=== PATIENT | female | born 1995 | race Hispanic/Latino ===

== ENCOUNTER 2016-11-17 01:07 | Inpatient (IN) | payer OTHER ==
[~2016-11-17] VITALS: Ht 152.4 cm; Wt 107.5 kg
[~2016-11-17 01:07] MED LIST: PREN1TAB47 PO
--- NOTE | 2016-11-17 08:51 | HP ---
[address] [address] HISTORY AND PHYSICAL PATIENT: ANGIE BLACKWOOD : 1995 MR#: [id number] ADMIT: 11/17/2016 JOB ID: [id number] CHIEF COMPLAINT: Induction. HISTORY OF PRESENT ILLNESS: This is a 21-year-old obstetrical patient of mine who is a 3, para 2, at 41 and 0 weeks estimated gestational age today who presents for elective induction for being post dates. Her EDC is November 10, 2016 and her last menstrual period was February 04, 2016. She has no acute complaints at all. She has been having some mild contractions for a number of days and has demonstrated some minimal cervical change, but is not doing much. heart tracing was reassuring this morning. The cervical exam is 2 cm, 70% effaced, -3 and vertex position and cervix is soft. The patient will be admitted for elective induction. COURSE: course was entirely unremarkable. LABORATORY: Her initial laboratory tests are fairly unremarkable. Her blood type is A-positive. She is rubella nonimmune. Serology was nonreactive. She has negative hepatitis B, hep C, HIV and antibody screen. Hematocrit was 43 at seven weeks and 42.3, at 27 weeks. Herpes test for type 1 was positive, but type 2 is negative. Initial Pap smear was unremarkable. Chlamydia and gonorrhea tests were negative. Urine was mixed. MSAFP test was declined. The 28 weeks labs showed a diabetic screen that was negative with 1 hour Glucola of 86 and antibody screen was again negative and hematocrit was stable at 42.3. GBS test was performed at 36 weeks and was negative. PAST OBSTETRICAL HISTORY: Patient has had two spontaneous vaginal deliveries, one in 2010 and one in January 2014, both unremarkable at term. The 1st was GBS positive; although, the baby was fine and had no subsequent problems. PAST GYNECOLOGICAL HISTORY: Entirely unremarkable. PAST MEDICAL HISTORY: Also entirely unremarkable. SURGICAL HISTORY: Negative with no prior operations. ALLERGIES: She has no known drug allergies. MEDICATIONS: Current medications are vitamins. FAMILY HISTORY: Significant for diabetes in her maternal grandmother and twins of maternal uncles. There is no hypertension or congenital defects in her family history. SOCIAL HISTORY: The patient lives in [place] with her significant other and their two children. Patient is a full-time mom who is currently unemployed and she is a nonsmoker. Denies ever smoking and also denies alcohol or drug use. REVIEW OF SYSTEMS: See HPI above. The patient denies any chest pain, palpitations, shortness of breath. No unusual abdominal pain. No headaches. No blurry vision. She had a little bit of swelling in her feet lately and she did have both flu shot and tetanus shot in May of this year. OBJECTIVE: Well-developed, well-nourished woman in no apparent distress. Her vital signs are normal with a blood pressure of 117/74, and pulse of 86, respirations normal. Lungs are clear to auscultation bilaterally. Good air movement. Heart is regular rate and rhythm. No significant murmurs heard. Abdomen is gravid, otherwise benign. Extremities show no significant edema. She is a little puffy, but no pitting edema is noted. Her deep tendon reflexes are normal. Cervical exam is as mentioned above at 2 cm with 70% effacement, soft and the baby is at -3 station and in vertex position. heart tracing is reactive. ASSESSMENT/PLAN: Intrauterine at 41 and 0/7th weeks estimated gestational age who is now postdates by one week is here for elective induction. We will go ahead and admit her and plan on using Cytotec since her Del Cid score is less than eight for cervical ripening. I discussed this case with Dr. Martino this morning who concurs with the plan of care. I discussed routine expectant management issues and procedures. I also discussed the potential complications in the usual obstetrical procedures to address them, but also the possible need for surgical care if a becomes needed. I also discussed the possible need for assistance with vacuum extraction and the associated potential complications. All of her questions were answered and she expressed understanding of these issues and is willing to proceed.
[2016-11-17 10:34] LABS: Mean Corpuscular Hemoglobin 27.4 pg (27.0-35.0); Mean Corpuscular Volume 84.9 fL (81-100)
[2016-11-17] MEDS ORDERED: Lactated Ringer's 1,000 ML IV SCH ×2 (11:19→12:31)
[2016-11-17] MEDS ORDERED: diphenhydrAMINE 50 mg Capsule PO PRN (11:20)
[2016-11-17] MEDS ORDERED: Misoprostol 25 mCg/0.25 Tablet VAGINAL SCH (11:20)
[2016-11-17] MEDS ORDERED: Oxytocin 30 Units/500 mL LR 30 UNITS in IV Premix 1 EACH IV PRN ×2 (11:20→11:55)
[2016-11-17] MEDS ORDERED: Lactated Ringer's 1,000 ML IV PRN (11:54)
[2016-11-17] MEDS ORDERED: Methylergonovine 0.2 mg/mL Inj IM PRN (11:55)
[2016-11-17] MEDS ORDERED: Carboprost 250 mCg/mL Inj IM PRN (11:55)
[2016-11-17] MEDS ORDERED: Hemorrhage Kit, Post Partum XX ONE (11:55)
[2016-11-17] MEDS ORDERED: Oxytocin 10 Unit/mL Inj IM PRN (11:55)
[2016-11-17] MEDS ORDERED: Lactated Ringer's 500 ML IV ONE (12:31)
[2016-11-17] MEDS ORDERED: fentaNYL 2 mCg/mL-Bupiv 0.125% 100 ML EPIDURAL SCH (12:35)
[2016-11-17] MEDS ORDERED: EPHEDrine Sulfate 50 mg/mL Inj IVPUSH PRN (12:35)
[2016-11-17] MEDS ORDERED: Ondansetron 2 mg/mL 2 mL Inj IVPUSH PRN (12:35)
[2016-11-17] MEDS ORDERED: Atropine 1 mg/10 mL (Code) Syringe IVPUSH PRN (12:35)
[2016-11-17] MEDS ORDERED: Sodium Chloride LOK Flush 10 mL Syringe IVFLUSH SCH (16:30)
--- NOTE | 2016-11-17 22:59 | PCM.HPANE ---
Patient Data Surgeon Admitting Provider:Ramy Lam MD Attending Provider:Ramy Lam MD Primary Care Physician:Ramy Lam MD Other Provider:Kitty Mcneilingham Anesthesia Reason for Visit Induction INDUCTION Ht/WT & BMI Body Mass Index Allergies Coded Allergies: No Known Allergies (Unverified Allergy, Unknown, 02/19/14) Past Anesthesia History Anesthesia History: Denies:: Abnormal Airway, Anesthesia Reactions, Difficult Intubation, Fam Anesthesia Reaction, Fam Malignant Hypertherm, Malignant Hyperthermia Diabetes History Hx Diabetes?: No Medications Hypertension Medication: No Home Meds Incl Beta Demetra: No Reported Medications Vit/Fe Fumarate/Fa-Expunged Drug, Do (-Expunged Drug, Do Not Renew!)1 Tab Tablet1 Po Daily 12/28/10 History History of ENT Problems?: No HEENT History: Denies:: Abnormal Airway Cataracts Difficult Intubation Dysphagia Glaucoma Hearing Problem Sinus Problem TMJ Denture Type: None Teeth Condition: Within Normal Limits Hx of Heart Problems?: No Cardiovascular History: Denies:: Congestive Heart Failure Hypertension Hx of Respiratory Problem?: No Respiratory History: Denies:: Asthma COPD Chest Surgery Cough Dyspnea Emphysema Hemoptysis Oxygen Administration Pneumonia Pulmonary Embolism Tuberculosis Use of C-PAP Machine Use of Inhalers / NEBS Hx Neurologic Problems?: No Hx of GI Problems?: No Hx of Problems?: No Female Hx: Positive for:: Currently Hx Musculoskeletal Problems?: No Hx Surgeries?: No Hx Any Other Health Problems?: No Hx Diabetes: No Hx Alcohol Use: NoHx Substance Use: No Smoking Status: Never Smoker Have You Smoked inLast 12 mo: No Stop/Bang Risk Assessment Category Category 1A: Patient has history of documented sleep apnea, and HAS NOT received any narcotic, sedative or anesthesia administration during this stay. Category 1B: Patient has history of documented sleep apnea, and HAS received any narcotic , sedative or anesthesia administration during this stay Category 2: Patient has SUSPECTED Obstructive Sleep Apnea, and HAS received any narcotic , sedative or anesthesia administration during this stay. Category 3: Patient has SUSPECTED Obstructive Sleep Apnea and HAS NOT received narcotic, sedative or anesthesia administration during this stay. Category 4: Outpatient in Procedural Areas with known sleep apnea or who screen positive for High Risk via the STOP/BANG questionnaire. Exam Exam General Appearance: Alert, Oriented X3 HEENT/AIRWAY: MP 2, Neck Movement (FROM) Lungs: Clear to Auscultation, Clear to Percussion Heart: Exam Unremarkable, Regular Rate/Rhythm Meds/Labs/Diagnostics Labs Test 11/17/16 08:25 White Blood Count 9.8th/mm3 (3.8-10.1) Red Blood Count 4.45mil/mm3 (3.90-5.20) Hemoglobin 12.2g/dL (12.0-15.6) Hematocrit 37.8% (35.0-46.0) Mean Corpuscular Volume 84.9fL (81-100) Mean Corpuscular Hemoglobin 27.4pg (27.0-35.0) Mean Corpuscular Hemoglobin Concent 32.3% (32.0-37.0) Red Cell Distribution Width 14.6% (12.3-15.4) Platelet Count 249bil/L (150-400) Plan Impression Patient chart reviewed, patient interviewed and anesthestic plan with risks, benefits, and alternatives discussed, and informed consent obtained. ASA Physical Status: ASA3 Severe Disease Anesthetic Plan: Epidural Bene/Risks/Altern/Consents: Yes HP Complete Prior to Induction: Yes Buster Bach MD Nov 17, 2016 12:30
[2016-11-18] MEDS ORDERED: Lactated Ringer's 1,000 ML IV SCH (01:15)
[2016-11-18] MEDS ORDERED: Carboprost 250 mCg/mL Inj IM PRN (01:15)
[2016-11-18] MEDS ORDERED: LANOlin HPA 7 Gm Ointment TOPICAL PRN (01:15)
[2016-11-18] MEDS ORDERED: Benzocaine (Dermoplast) 20% 60 Gm Spray TOPICAL PRN (01:15)
[2016-11-18] MEDS ORDERED: Oxytocin 10 Unit/mL Inj IM PRN (01:15)
[2016-11-18] MEDS ORDERED: Measles-Mumps-Rubella Vaccine 0.5 mL Inj SUBQ ONE (01:15)
[2016-11-18] MEDS ORDERED: Witch Hazel-Glycerin Pads TOPICAL PRN (01:15)
[2016-11-18] MEDS ORDERED: Hemorrhage Kit, Post Partum XX ONE (01:15)
[2016-11-18] MEDS ORDERED: Methylergonovine 0.2 mg/mL Inj IM PRN (01:15)
--- NOTE | 2016-11-18 01:49 | OP ---
[address] [address] OPERATIVE REPORT PATIENT: ANGIE BLACKWOOD : 1995 MR#: [id number] ADMIT: 11/17/2016 JOB ID: [id number] DATE OF SURGERY: 11/18/2016. PREOPERATIVE DIAGNOSIS(ES): POSTOPERATIVE DIAGNOSIS(ES): SURGEON: Ramy Lam MD. PROCEDURE: Spontaneous vaginal delivery. DELIVERY NOTE: The patient had a spontaneous vaginal delivery as outlined below. Please see my admission H and P for details of her presenting circumstances. The patient had slow progress through the course of the day. She received one dose of Cytotec vaginally and then about four hours later she was paulina much more so and really contraindicated further Cytotec, and she was just monitored closely. She was found to be about 2 cm, 80% effaced, soft, and at -3 station, which corresponded to a Del Cid score of 5, and so Pitocin was started to augment her labor. This was started at approximately 16:00. I discussed this with Dr. Martino, my financial analysis consultant. Her contractions became more rigorous over the next number of hours and yet her cervix had not really changed very much, and she was checked at about 21:50 and found to still just be 3 cm and about 90% effaced, but still in the same -3 station. It had been very difficult monitoring her contractions because of body habitus and so artificial rupture of membranes was performed at 21:57, producing clear fluid. An IUPC was attempted to be placed but it was unsuccessful. Her contraction pattern became more rigorous, stronger, more uncomfortable and more frequent. She requested an epidural, and this was placed at 10:25 with excellent results. Again, it was difficult to monitor her contractions and so she was checked and found to be about 5 cm, 90% to 100% effaced, and so on IUPC was placed at 23:06 with excellent results, and we were after that able to monitor the contractions very well. She continued to contract regularly with increasing pressure in her pelvis. The baby's heart tracing remained nice and reactive but started having variables, first noted about 22:30 and throughout the rest of her labor course was having variables with contractions, but then with good response back up to baseline. She was found to be completely dilated and effaced at 00:29 and then began pushing. She delivered the baby's head. A nuchal cord was noted and reduced manually. The baby presented in an occiput anterior position and then the rest of the baby was completed at 00:39. Then, the baby was placed on mom's tummy, approximately 60 seconds were waited, and then the cord was clamped and cut. The placenta delivered spontaneously and intact at 00:50. Inspection of her perineum revealed a small periurethral superficial laceration that was not actively bleeding. Otherwise, no other lacerations were noted. Her cervix was inspected and found to have no lacerations. Estimated blood loss was very little at about 150 cc. Complications none. The baby was a baby girl with Apgars of 9 and 9, and weight is still pending. Will place routine orders and anticipate will be able to discharge her in 24 hours or so.
[2016-11-18] MEDS: Ascorbic Acid 500 mg Tablet PO SCH ×2 (11:50→18:35)
[2016-11-18] MEDS: oxyCODONE-Acetamin 5-325 mg Tablet PO PRN ×2 (14:13→19:40)
[2016-11-19] MEDS: oxyCODONE-Acetamin 5-325 mg Tablet PO PRN ×2 (01:18→08:04)
[2016-11-19 06:34] LABS: Mean Corpuscular Hemoglobin 27.1 pg (27.0-35.0); Mean Corpuscular Volume 87.1 fL (81-100)
[2016-11-19] MEDS: Ascorbic Acid 500 mg Tablet PO SCH (08:00)
--- NOTE | 2016-11-19 08:04 | PCM.DIOB ---
Obstetrical Disch Instruction Date of Service: Nov 19, 2016 Dates of Hospitalization Date of Hospital Admission Nov 17, 2016 at 07:00 Providers Admitting Physician: Ramy Lam MD Primary Care Physician: Ramy Lam MD Attending Physician: Ramy Lam MD Discharge Diagnosis Problems: (1) Normal vaginal delivery Onset Date: 02/20/2014 Status: Acute ICD Code: O80 Diet Discharge Diet: No restrictions Activity Discharge Activity-General: Pelvic Rest for 6 weeks, Be up and about, Balance rest and activity Dressing and Incisional Care Hygiene: May shower Follow Up Plan Follow Up Plan f/u in 6 weeks and prn Follow-up Provider (F9): Ramy Lam MD Follow-up appointment: Weeks (six) Call your provider for: Fever or Chills, Shortness of breath, Heavy vaginal bleeding, Heavy bleeding, Epigastric pain, Excessive constipation, Vaginal discomfort, Red painful breasts Ramy Lam MD Nov 19, 2016 08:04
[2016-11-19] MEDS ORDERED: IBUP800T28 PO (08:06)
[2016-11-19] MEDS ORDERED: OXYC1TAB24 PO (08:06)
[2016-11-19 10:32] VITALS: BP 108/58; PULSE 73; RESP 18
--- NOTE | 2016-11-19 21:45 | DIS ---
[address] [address] DISCHARGE SUMMARY PATIENT: ANGIE BLACKWOOD : 1995 MR#: [id number] ADMIT: 11/17/2016 JOB ID: [id number] DIS: 11/19/2016 DISCHARGE DIAGNOSIS: 1. Term . 2. Spontaneous vaginal delivery after induction. HISTORY AND PHYSICAL: Please see my admission H and P for details. CONSULTATIONS: None. PROCEDURES: The patient had a spontaneous vaginal delivery early on the morning of November 18. Please see my delivery note for details. HOSPITAL COURSE: Patient was admitted on the morning of November 17 for elective induction because of being post dates at about 41 weeks. Induction was started and managed in the usual manner and resulting in a spontaneous vaginal delivery without significant problems approximately 18 hours later. Her course has been unremarkable. Her vital signs remained stable throughout her hospitalization. Upon discharge, her only complaint was some ongoing troubles with pain from uterine cramping for which she was using ibuprofen and an occasional Percocet. Her lochia was improving and she reported no significant perineal discomfort. DISCHARGE EXAM: Shows her vital signs to be normal. Lungs were clear to auscultation bilaterally. Good air movement. Heart regular rate, rhythm. No significant murmurs heard and abdomen is benign. and uterus is firm and below the umbilicus. Extremities showed no significant pitting edema and normal deep tendon reflexes. ASSESSMENT: Status post spontaneous vaginal delivery approximately 30 hours earlier. The patient is stable and doing fine. PLAN: Discharged home today. DISCHARGE MEDICATIONS: Included 60 tablets of 800 mg ibuprofen, told to take one p.o. t.i.d. p.r.n., and 30 tablets of Percocet 5/325 to use 1-2 p.o. q.4 h. p.r.n. for breakthrough pain. The patient was told to follow up with me in six weeks otherwise as needed.
== END 2016-11-19 12:15 | disposition home or self-care (01) | DRG 775 ==
LOC: FBC 07:00
PROVIDERS: ADMIT Family Medicine; ATTEND Family Medicine
PROC: 3E033VJ Introduction of Other Hormone into Peripheral Vein, Percutaneous Approach (ICD-10-PCS; 2016-11-17)
PROC: 10E0XZZ Delivery of Products of Conception, External Approach (ICD-10-PCS; principal; 2016-11-18)
PROC: 10907ZC Drainage of Amniotic Fluid, Therapeutic from Products of Conception, Via Natural or Artificial Opening (ICD-10-PCS; 2016-11-18)
PROC: 10H07YZ Insertion of Other Device into Products of Conception, Via Natural or Artificial Opening (ICD-10-PCS; 2016-11-18)
DX: O48.0 Post-term pregnancy (principal); O76 Abnormality in fetal heart rate and rhythm complicating labor and delivery; O69.81X0 Labor and delivery complicated by cord around neck, without compression, not applicable or unspecified; Z3A.41 41 weeks gestation of pregnancy; Z37.0 Single live birth